=== PATIENT | male | born 1990 | race Caucasian/White ===

== ENCOUNTER 2018-12-22 23:10 | Emergency (ER) | payer OTHER ==
[~2018-12-22] VITALS: Ht 182.9 cm; Wt 65.8 kg
[2018-12-22 23:19] VITALS: BP 136/83; Ht 182.9 cm; Wt 65.8 kg
== END 2018-12-23 00:02 | disposition other institution (70) ==
LOC: ED 23:10
DX: Z02.89 Encounter for other administrative examinations (principal)

== ENCOUNTER 2019-05-04 17:11 | Emergency (ER) | payer SELFPAY ==
[~2019-05-04] VITALS: Ht 182.9 cm; Wt 68.0 kg
[2019-05-04 17:33] VITALS: Ht 182.9 cm; Wt 68.0 kg
[2019-05-04 20:25] VITALS: BP 130/92
== END 2019-05-04 20:25 | disposition other institution (70) ==
LOC: ED 17:11
DX: L02.416 Cutaneous abscess of left lower limb (principal); F11.23 Opioid dependence with withdrawal; F15.90 Other stimulant use, unspecified, uncomplicated; F32.9 Major depressive disorder, single episode, unspecified; G43.909 Migraine, unspecified, not intractable, without status migrainosus; Z48.01 Encounter for change or removal of surgical wound dressing; Z88.0 Allergy status to penicillin; Z88.5 Allergy status to narcotic agent

== ENCOUNTER 2019-05-04 17:11 | Emergency (ER) | payer OTHER | END 2019-05-04 20:25 | disposition other institution (70) | LOC: ED 17:11 | DX: Z02.89 Encounter for other administrative examinations (principal) ==

== ENCOUNTER 2020-05-24 04:44 | Emergency (ER) | payer OTHER ==
[~2020-05-24] VITALS: Ht 182.9 cm; Wt 68.0 kg
[2020-05-24 04:58] VITALS: Ht 182.9 cm; Wt 68.0 kg
[2020-05-24 06:53] VITALS: BP 108/69
[2020-05-24 07:44] LABS: AMPHETAMINE QUAL UR POSITIVE (See below)
== END 2020-05-24 07:51 | disposition home or self-care (01) ==
LOC: ED 04:44
PROVIDERS: Specialist
DX: R51 Headache (principal); M54.9 Dorsalgia, unspecified; F15.10 Other stimulant abuse, uncomplicated; Z88.0 Allergy status to penicillin; Z88.5 Allergy status to narcotic agent; Y04.0XXA Assault by unarmed brawl or fight, initial encounter; Y93.89 Activity, other specified; Y92.89 Other specified places as the place of occurrence of the external cause; Y99.8 Other external cause status
CPT/HCPCS: G0480; J7030